=== PATIENT | female | born 1990 | race Two or more races ===

== ENCOUNTER 2017-06-01 16:51 | Emergency (ER) | payer BC ==
[~2017-06-01] VITALS: Ht 165.1 cm; Wt 60.9 kg
[2017-06-01 16:59] VITALS: Ht 165.1 cm; Wt 60.9 kg
[2017-06-01 18:39] LABS: CALCIUM 8.7 mg/dL (8.5-10.1); CARBON DIOXIDE 31.4 mmol/L (21-32); CHLORIDE SERUM 104 mmol/L (98-107); CREATININE SERUM 0.6 mg/dL (0.6-1.0); GFR1 > 60 mL/min; GLUCOSE SERUM 86 mg/dL (74-106); POTASSIUM SERUM 3.7 mmol/L (3.5-5.1); SODIUM SERUM 141 mmol/L (136-145)
[2017-06-01 18:46] LABS: BASOPHIL % 0.4 % (0-2); PLATELET COUNT 258 x10^3mcL (130-400); RED CELL DISTRIBUTION WIDTH 12.7 % (11.5-14.5)
[2017-06-01 20:17] VITALS: BP 98/61
== END 2017-06-01 20:17 | disposition home or self-care (01) ==
LOC: ED 16:51
PROVIDERS: Emergency Medicine
DX: R10.30 Lower abdominal pain, unspecified (principal); R39.15 Urgency of urination; N89.8 Other specified noninflammatory disorders of vagina
CPT/HCPCS: 36415; 87491; 87591; J1885